=== PATIENT | male | born 1945 | race Caucasian/White ===

== ENCOUNTER 2020-05-13 14:38 | Observation (INO) | payer MEDICARE, OTHER ==
[~2020-05-13] VITALS: Ht 172.7 cm; Wt 105.3 kg
[2020-05-13] MEDS ORDERED: MINIPRESS1 M1 PO (14:52)
[2020-05-13] MEDS ORDERED: PHENOBARBITAL97.2 M1 PO (14:52)
[2020-05-13] MEDS ORDERED: PHENOBARBITAL32.4 M1 PO (14:53)
[2020-05-13] MEDS ORDERED: KEPPRA1000 MG PO (14:53)
[2020-05-13] MEDS ORDERED: ONE-DAILY MULT1 EAC1 PO (14:54)
[2020-05-13] MEDS ORDERED: VITAMIN C500 M7 PO (14:54)
[2020-05-13] MEDS ORDERED: CHOLECALCIFEROL1 GM PO (14:54)
[2020-05-13 15:54] LABS: MEAN CELL VOLUME 92 fl (78-100); MEAN CORPUSCULAR HEMOGLOBIN 31 pg (27-31); MEAN CORPUSCULAR HGB CONC 33 g/dL (33-37); MEAN PLATELET VOLUME 9.2 fl (7.4-10.4); PLATELET COUNT 327 K/mm3 (130-400); RED BLOOD COUNT 3.59 M/mm3 (4.20-5.60); RED CELL DISTRIBUTION WIDTH 13.4 % (11.5-14.5); WHITE BLOOD COUNT 5.5 K/mm3 (4.8-10.8)
[2020-05-13 16:05] LABS: ALBUMIN 3.4 g/dL (3.4-4.8)
[2020-05-13 16:06] LABS: POTASSIUM 4.3 mmol/L (3.5-5.1)
[2020-05-13 16:07] LABS: CALCIUM 9.2 mg/dL (8.3-10.5)
[2020-05-13 16:08] LABS: TOTAL PROTEIN 6.7 g/dL (6.2-8.1)
[2020-05-13 16:10] LABS: TOTAL BILIRUBIN 0.4 mg/dL (0.2-1.2)
[2020-05-13 16:17] LABS: LYMPHOCYTE 14 % (20-51); MONOCYTE 16 % (3-10)
[2020-05-13 16:18] LABS: NEUTROPHILS 66 % (42-75)
[2020-05-13 18:57] VITALS: BP 165/108
[2020-05-13 22:14] VITALS: BP 143/85
[2020-05-14 00:49] LABS: URINE APPEARANCE CLEAR; URINE BILIRUBIN NEGATIVE (NEGATIVE); URINE BLOOD TRACE (NEGATIVE); URINE COLOR YELLOW; URINE GLUCOSE NEGATIVE (NEGATIVE); URINE KETONE NEGATIVE (NEGATIVE); URINE LEUKOCYTE ESTERASE NEGATIVE (NEGATIVE); URINE NITRATE NEGATIVE (NEGATIVE); URINE PROTEIN(semi-quant) NEGATIVE (NEGATIVE); URINE UROBILINOGEN NORMAL (NORMAL)
[2020-05-14 00:50] LABS: URINE WBC 0-1 /hpf (0-3)
[2020-05-14 01:23] VITALS: BP 113/73
[2020-05-14 05:56] VITALS: BP 112/72
[2020-05-14 06:20] LABS: HEMATOCRIT 32.6 % (42.0-52.0); HEMOGLOBIN 10.6 g/dL (13.5-18.0); MEAN CELL VOLUME 93 fl (78-100); MEAN CORPUSCULAR HEMOGLOBIN 30 pg (27-31); MEAN CORPUSCULAR HGB CONC 33 g/dL (33-37); MEAN PLATELET VOLUME 9.2 fl (7.4-10.4); PLATELET COUNT 329 K/mm3 (130-400); RED CELL DISTRIBUTION WIDTH 13.6 % (11.5-14.5); WHITE BLOOD COUNT 5.3 K/mm3 (4.8-10.8)
[2020-05-14 06:27] LABS: POTASSIUM 4.3 mmol/L (3.5-5.1)
[2020-05-14 06:28] LABS: CALCIUM 8.7 mg/dL (8.3-10.5)
[2020-05-14 06:42] LABS: LYMPHOCYTE 17 % (20-51); MONOCYTE 13 % (3-10); NEUTROPHILS 70 % (42-75)
[2020-05-14 09:25] VITALS: BP 128/77
[2020-05-15 03:34] LABS: LEVETIRACETAM (KEPPRA) 45 ug/mL (5-45)
== END 2020-05-14 10:20 | disposition other institution (70) ==
LOC: ED 14:38 → MED/SURG 17:54
PROVIDERS: ADMIT Physician Assistant
DX: G43.909 Migraine, unspecified, not intractable, without status migrainosus (principal); U07.1 COVID-19; J44.9 Chronic obstructive pulmonary disease, unspecified; I10 Essential (primary) hypertension
CPT/HCPCS: G0378; J1650

== ENCOUNTER 2020-05-14 09:33 | Inpatient (IN) | payer MEDICARE, OTHER ==
[~2020-05-14] VITALS: Ht 172.7 cm; Wt 105.3 kg
[~2020-05-14 09:33] MED LIST: CHOLECALCIFEROL1 GM PO; KEPPRA1000 MG PO; MINIPRESS1 M1 PO; ONE-DAILY MULT1 EAC1 PO; PHENOBARBITAL32.4 M1 PO; PHENOBARBITAL97.2 M1 PO; VITAMIN C500 M7 PO
[2020-05-14 10:26] VITALS: BP 128/77
[2020-05-14 11:43] VITALS: BP 128/77
[2020-05-14 11:45] VITALS: BP 128/77
[2020-05-14 13:41] VITALS: BP 110/72
--- NOTE | 2020-05-14 15:55 | NUR ---
Pt resting in chair. Cont noc ox reading 88% on RA, consistently. Sats have been in the low 90s with vitals. Placed pt on 2L via NC. Cont noc ox machine continued to read 88%. Oxygen increased to 3L. O2 reading up to 89%. On different pulse ox machine pt reading 97% on 3L. O2 sat now reading 94% on cont noc ox machine. Decreased oxygen to 1L. Will continue to montior.
[2020-05-14 17:11] VITALS: BP 124/78
--- NOTE | 2020-05-14 17:40 | NUR ---
Pt sitting up in chair, just finished 100% of his dinner. Pt more oriented at this time than he has been throughout rest of shift. Pt able to state name, year, month, location and president. Pt denies pain or discomfort at this time. Chair alarm on and call light within reach.
--- NOTE | 2020-05-14 19:10 | NUR ---
Report given to PHILOMENA Graves.
[2020-05-14 21:06] VITALS: BP 147/94
[2020-05-15 01:45] VITALS: BP 124/68
[2020-05-15 05:52] VITALS: BP 100/53
[2020-05-15 07:20] LABS: HEMATOCRIT 33.2 % (42.0-52.0); HEMOGLOBIN 10.6 g/dL (13.5-18.0); MEAN CELL VOLUME 94 fl (78-100); MEAN CORPUSCULAR HEMOGLOBIN 30 pg (27-31); MEAN CORPUSCULAR HGB CONC 32 g/dL (33-37); MEAN PLATELET VOLUME 9.2 fl (7.4-10.4); PLATELET COUNT 339 K/mm3 (130-400); RED BLOOD COUNT 3.53 M/mm3 (4.20-5.60); RED CELL DISTRIBUTION WIDTH 14.1 % (11.5-14.5); WHITE BLOOD COUNT 5.3 K/mm3 (4.8-10.8)
[2020-05-15 07:32] LABS: ALBUMIN 3.1 g/dL (3.4-4.8); POTASSIUM 4.3 mmol/L (3.5-5.1)
[2020-05-15 07:33] LABS: CALCIUM 8.7 mg/dL (8.3-10.5)
[2020-05-15 07:34] LABS: TOTAL PROTEIN 6.5 g/dL (6.2-8.1)
[2020-05-15 07:36] LABS: TOTAL BILIRUBIN 0.4 mg/dL (0.2-1.2)
[2020-05-15 07:39] LABS: LYMPHOCYTE 18 % (20-51); MONOCYTE 10 % (3-10); NEUTROPHILS 70 % (42-75); POLYCHROMASIA 1+
[2020-05-15 09:58] VITALS: BP 134/77
--- NOTE | 2020-05-15 13:20 | NUR ---
Notifed by primary nurse and provider that pt will need O2 at discharge. Went in to meet with pt regarding [facility]. Pt stated that he already had O2 setup at home. Called pt's , Sofi, to confirm. Sofi stated that pt was setup with oxygen from [facility] after his recent discharge. He was supposed to be on 3L. Sofi states that pt's O2 sats were around 96% so they took it off him during the day and that pt was only wearing it at night. Asked about Home Health and Sofi states that they were offered it when pt was d/c'd from [place] but they declined because they "didn't want all that COVID" coming into their home. Offered it again after his discharged this time and she stated "it would depend" on her husbands condition but that she did not think they would be interested at this time. Will update proivder and continue to follow for discharge needs.
[2020-05-15 13:58] VITALS: BP 119/73
[2020-05-15 16:56] VITALS: BP 141/77
--- NOTE | 2020-05-15 20:30 | NUR ---
Patient awake watching TV. Denies pain. Alert and oriented x 4. Pleasant. HS meds reviewed and given. Neuros WNL. Avendano care provided. Snack of sabas given. Encouraged ambulation this HS and to call if would like a walk in hallway.
[2020-05-15 21:49] VITALS: BP 138/87
[2020-05-16 02:00] VITALS: BP 126/80
--- NOTE | 2020-05-16 02:41 | NUR ---
Patient has been resting with eyes closed. Noc ox intact.
--- NOTE | 2020-05-16 05:28 | NUR ---
Awakened for neuro checks. Denies pain or needs. Neuros WNL. Returns to resting with eyes closed.
[2020-05-16 05:58] VITALS: BP 114/73
--- NOTE | 2020-05-16 06:05 | NUR ---
Patients sao2 on room air once back from the bathroom reading 85%. Denies shortness of breath. O2 sat now 89% on 2lpnc.
--- NOTE | 2020-05-16 06:27 | NUR ---
02 SAT 89% 2LPNC AND INCREASED TO 2.5 L AND SATS 90% AT THIS TIME.
[2020-05-16 07:32] LABS: HEMATOCRIT 34.3 % (42.0-52.0); HEMOGLOBIN 10.9 g/dL (13.5-18.0); MEAN CELL VOLUME 95 fl (78-100); MEAN CORPUSCULAR HEMOGLOBIN 30 pg (27-31); MEAN CORPUSCULAR HGB CONC 32 g/dL (33-37); MEAN PLATELET VOLUME 9.3 fl (7.4-10.4); PLATELET COUNT 310 K/mm3 (130-400); RED BLOOD COUNT 3.62 M/mm3 (4.20-5.60); RED CELL DISTRIBUTION WIDTH 14.1 % (11.5-14.5); WHITE BLOOD COUNT 4.8 K/mm3 (4.8-10.8)
[2020-05-16 07:39] LABS: LYMPHOCYTE 17 % (20-51); MONOCYTE 17 % (3-10); NEUTROPHILS 63 % (42-75)
[2020-05-16 07:42] LABS: ALBUMIN 3.2 g/dL (3.4-4.8)
[2020-05-16 07:43] LABS: POTASSIUM 4.3 mmol/L (3.5-5.1)
[2020-05-16 07:44] LABS: CALCIUM 8.6 mg/dL (8.3-10.5)
[2020-05-16 07:45] LABS: TOTAL PROTEIN 6.7 g/dL (6.2-8.1)
[2020-05-16 07:47] LABS: TOTAL BILIRUBIN 0.3 mg/dL (0.2-1.2)
[2020-05-16] MEDS ORDERED: VIMPAT200 MG PO (09:17)
[2020-05-16 10:20] VITALS: BP 118/71
--- NOTE | 2020-05-16 12:50 | NUR ---
Patient has been excorted to [facility] with all of belongings. VO called to Cindy bryant, Laury, for Vimpat 200mg BID x 10 days.
== END 2020-05-16 11:13 | disposition home or self-care (01) | DRG 101 ==
LOC: MED/SURG 09:33
PROVIDERS: ADMIT Physician Assistant
DX: G40.909 Epilepsy, unspecified, not intractable, without status epilepticus (principal); J44.9 Chronic obstructive pulmonary disease, unspecified; I10 Essential (primary) hypertension; R09.02 Hypoxemia; Z86.16 Personal history of COVID-19
CPT/HCPCS: C9113; C9254; J1650

== ENCOUNTER 2021-01-01 09:00 | Emergency (ER) | payer MEDICARE, OTHER ==
[~2021-01-01] VITALS: Ht 177.8 cm; Wt 105.9 kg
[~2021-01-01 09:00] MED LIST changes: +VIMPAT200 MG PO
[2021-01-01 12:07] LABS: HEMATOCRIT 37.3 % (42.0-52.0); HEMOGLOBIN 12.5 g/dL (13.5-18.0); MEAN CELL VOLUME 95 fl (78-100); MEAN CORPUSCULAR HEMOGLOBIN 32 pg (27-31); MEAN CORPUSCULAR HGB CONC 34 g/dL (33-37); MEAN PLATELET VOLUME 9.4 fl (7.4-10.4); PLATELET COUNT 182 K/mm3 (130-400); RED BLOOD COUNT 3.92 M/mm3 (4.20-5.60); WHITE BLOOD COUNT 11.4 K/mm3 (4.8-10.8)
[2021-01-01 12:11] LABS: ALBUMIN 3.9 g/dL (3.4-4.8); POTASSIUM 4.3 mmol/L (3.5-5.1)
[2021-01-01 12:13] LABS: CALCIUM 9.7 mg/dL (8.3-10.5)
[2021-01-01 12:14] LABS: TOTAL PROTEIN 7.2 g/dL (6.2-8.1)
[2021-01-01 12:16] LABS: TOTAL BILIRUBIN 0.4 mg/dL (0.2-1.2)
[2021-01-01 12:28] LABS: URINE APPEARANCE HAZY; URINE BILIRUBIN NEGATIVE (NEGATIVE); URINE BLOOD NEGATIVE (NEGATIVE); URINE COLOR YELLOW; URINE GLUCOSE NEGATIVE (NEGATIVE); URINE KETONE NEGATIVE (NEGATIVE); URINE LEUKOCYTE ESTERASE 2+ (NEGATIVE); URINE MUCUS PRESENT (NOT PRESENT); URINE NITRATE NEGATIVE (NEGATIVE); URINE PROTEIN(semi-quant) TRACE mg/dL (NEGATIVE); URINE UROBILINOGEN NORMAL (NORMAL)
[2021-01-01 12:42] LABS: LYMPHOCYTE 7 % (20-51); MONOCYTE 11 % (3-10); NEUTROPHILS 82 % (42-75)
[2021-01-01 14:00] VITALS: BP 176/84
== END 2021-01-01 14:00 | disposition short-term general hospital (02) ==
LOC: ED 09:00
PROVIDERS: Nurse Practitioner
DX: S72.002A Fracture of unspecified part of neck of left femur, initial encounter for closed fracture (principal); Z86.16 Personal history of COVID-19; W01.0XXA Fall on same level from slipping, tripping and stumbling without subsequent striking against object, initial encounter; Y92.480 Sidewalk as the place of occurrence of the external cause
CPT/HCPCS: J2270; J2405

== ENCOUNTER 2021-01-04 19:49 | Inpatient (IN) | payer MEDICARE, OTHER ==
[~2021-01-04] VITALS: Ht 172.7 cm; Wt 104.4 kg
[2021-01-05 12:15] VITALS: BP 148/86
--- NOTE | 2021-01-05 12:15 | NUR ---
REPORT RECEIVED FROM RYAN ALMENDAREZ AT [facility]. PATIENT ADMIT TO ROOM [address] [facility] 6Scan TRANSPORT [employer]. VSS ON RA. PATIENT ALERT AND ORIENTED X4. PLEASENT AND COOPERATIVE. 1:1 ASSIT FROM WC TO BED WITH MINIMAL ASSIST. WEIGHT BEARING TOLERATED WITH WALKER. ASSITED IN TO GOWN. HOMA BUCIO ASSESSED. PATIENT DENIES PAIN OR DISCOMFORT AT THIS TIME. DRESSING TO LEFT HIP CLEAN, DRY AND INTACT. LAST BM ON 01-05-2021. ORIENTED TO ROOM AND CALL LIGHT. PRESENT AT BEDSIDE. PATIENT PERSONAL BELONGINGS SENT WITH . CALL LIGHT WITHIN REACH. AWAITING ORDERS FROM [place].
[2021-01-05 17:17] VITALS: BP 118/82
[2021-01-05] MEDS ORDERED: ASPIRIN E.C. 8181 MG PO (17:55)
[2021-01-05] MEDS ORDERED: NATURAL IRON65 MG PO (17:56)
[2021-01-05] MEDS ORDERED: PHENOBARBITAL32.4 M1 PO (17:58)
[2021-01-05] MEDS ORDERED: PHENOBARBITAL97.2 M1 PO (17:59)
[2021-01-05] MEDS ORDERED: TRAMADOL 50 MG TAB PO (18:01)
[2021-01-05] MEDS ORDERED: TYLENOL 325MG325 MG PO (18:03)
[2021-01-05] MEDS ORDERED: NAPROXEN250 M2 PO (18:04)
[2021-01-05 18:30] VITALS: BP 118/82
--- NOTE | 2021-01-05 19:00 | NUR ---
Report received from Camilo LAMAR. Patient resting in bed. Denies pain or needs.
--- NOTE | 2021-01-06 06:00 | NUR ---
Patient awake watching TV. Reports he slept well. Denies needs.
[2021-01-06 06:15] VITALS: BP 122/75
--- NOTE | 2021-01-06 07:00 | NUR ---
Report recieved from PHILOMENA Rainey.
[2021-01-06 07:05] LABS: BASO # 0.01 (0.02-0.10); EOS # 0.62 (0.04-0.40); EOS % 9.8 % (0.0-4.0); HEMATOCRIT 34.7 % (42.0-52.0); HEMOGLOBIN 11.7 g/dL (13.5-18.0); MEAN CELL VOLUME 96 fl (78-100); MEAN CORPUSCULAR HEMOGLOBIN 32 pg (27-31); MEAN CORPUSCULAR HGB CONC 34 g/dL (33-37); MEAN PLATELET VOLUME 9.8 fl (7.4-10.4); MONO # 0.69 (0.20-0.80); NEU # 4.07 (1.40-6.50); PLATELET COUNT 189 K/mm3 (130-400); RED BLOOD COUNT 3.63 M/mm3 (4.20-5.60); RED CELL DISTRIBUTION WIDTH 13.9 % (11.5-14.5); WHITE BLOOD COUNT 6.3 K/mm3 (4.8-10.8)
[2021-01-06 07:33] LABS: POTASSIUM 4.4 mmol/L (3.5-5.1)
[2021-01-06 07:34] LABS: ALBUMIN 3.6 g/dL (3.4-4.8)
[2021-01-06 07:35] LABS: CALCIUM 9.5 mg/dL (8.3-10.5)
[2021-01-06 07:37] LABS: TOTAL PROTEIN 6.9 g/dL (6.2-8.1)
[2021-01-06 07:38] LABS: TOTAL BILIRUBIN 0.4 mg/dL (0.2-1.2)
[2021-01-06 17:58] VITALS: BP 145/77
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
[2021-01-07 06:16] VITALS: BP 132/63
--- NOTE | 2021-01-07 07:05 | NUR ---
REPORT RECEIVED FROM NANCY LAMAR.
--- NOTE | 2021-01-07 12:40 | NUR ---
SPEAKS POSITIVELY OF HIS PROGRESS WITH THERAPY TODAY; PROUD TO HAVE WALKED TO THE DEPARTMENT AND BACK TO ROOM. EXPRESSES DESIRE TO WALK PERIODICALLY THROUGH DAY TO STAY LIMBER. ADVISE PATIENT THIS CAN BE ACCOMODATED; JUST LET STAFF KNOW BY USING CALL LIGHT. OVERALL, PATIENT HAPPY WITH POST SURGICAL COURSE THUS FAR.
[2021-01-07 17:26] VITALS: BP 129/81
--- NOTE | 2021-01-07 18:57 | NUR ---
REPORT PROVIDED TO NANCY LAMAR.
--- NOTE | 2021-01-07 20:10 | NUR ---
Report received from Carissa QUACH. Patient rests in bed watching TV. A/O x4. Rates pain 1/10 to LLE. Requests 1 Tylenol with HS medications. Dressing to L Hip CDI. Assessment completed. Denies wants or needs at this time.
[2021-01-08 05:24] VITALS: BP 119/65
--- NOTE | 2021-01-08 06:55 | NUR ---
Report to Peyton QUACH.
--- NOTE | 2021-01-08 08:33 | NUR ---
Patient sitting in chair eating breakfast. A&Ox4. No c/o pain or discomfort. Reports he slept really well last night. Chair in locked position. Call light within reach.
--- NOTE | 2021-01-08 13:34 | NUR ---
This nurse called to schedule F/U appointment with Dr. Paredes in 10-14 day. Unable to schedule at this time. Call [phone] on Thursday 01/11 schedule F/U apt with Dr. Paredes's nurse. She schedules his post-op F/U appointments.
[2021-01-08 14:11] VITALS: BP 125/76
--- NOTE | 2021-01-08 19:00 | NUR ---
Report received from Abigail Curiel RN. Pt. is sitting up in lounge chair, with foot rest elevated and bilateral braces are in place. Pt.'s gauze dressing is clean, dry and intact and is held in place with a Tegaderm. Pt. is talkative and pleasant with assessment. Pt. denies discomfort at this time. Pt. reports he was diagnosed with Covid-19 spring. Respiratory hygiene was reviewed with Pt. and Pt. was given an [employer] spirometer. IS use and instruction reviewed with Pt. Pt. reached 2000 platform 1/5 times. Pt. has personal items within reach. Room orientation and safety measures reviewed with Pt.
[2021-01-09 05:47] VITALS: BP 129/76
--- NOTE | 2021-01-09 07:00 | NUR ---
Report recieved from PHILOMENA Arndt. Pt resting in recliner when entering the room. Denies pain. A&Ox4. Pt ambulated throughout the halls x1 assist with walker and gait belt with no concerns.
[2021-01-09 18:15] VITALS: BP 150/78
--- NOTE | 2021-01-09 18:26 | NUR ---
Pt is sitting in recliner watching the news. Pt denies pain or any concerns at this time. Will continue to monitor.
--- NOTE | 2021-01-10 00:03 | NUR ---
Pt sleeping in bed on rounds. Earlier this evening the patient has denied discomfort when asked. He amb. in halls earlier this evening with assist x1, using gait belt and walker, full weight-bearing to LLE. Amb. approx. 1000 to 1200 ft. Gris. to L hip incision CD&I. Call light in reach. Juan Carlos Morales LPN
[2021-01-10 06:20] VITALS: BP 127/77
--- NOTE | 2021-01-10 07:00 | NUR ---
Report recieved from PHILOMENA Gonzalez. Pt watching TV in bed. Pt denies pain or concerns at this time.
--- NOTE | 2021-01-10 07:12 | NUR ---
Pt rested well during this night. Daughter sleeping in recliner. Call light in reach. Report given to oncoming shift nurseEly. Juan Carlos Morales LPN
--- NOTE | 2021-01-10 07:19 | NUR ---
Pt awake in bed and watching TV. He denies discomfort. Report given to oncoming shift nurseHayley. Juan Carlos Morales LPN
[2021-01-10 17:48] VITALS: BP 151/82
--- NOTE | 2021-01-10 18:58 | NUR ---
Report given to WILLARD Meza.
--- NOTE | 2021-01-10 19:50 | NUR ---
Report received from Camilo/Ely QUACH. Patient rests in recliner with legs elevated. Braces in place to BLE. A/O x4. Denies pain. Dressing to L hip CDI. Assessment completed. HS snack given. Denies wants or needs at this tiem.
--- NOTE | 2021-01-10 21:54 | NUR ---
Ambulated in black with FIBROUS PLASTERER. SBA with walker. Steady gait, tolerated well. Assisted to bed.
--- NOTE | 2021-01-11 02:00 | NUR ---
Resting quietly. Calls to have urinal emptied PRN. Denies pain.
[2021-01-11 05:49] VITALS: BP 115/68
--- NOTE | 2021-01-11 06:25 | NUR ---
Rested well all night. AM medications taken. Up to recliner with assist of ASSEMBLER FLUORESCENT LIGHTS per request.
--- NOTE | 2021-01-11 07:02 | NUR ---
Report to Bernice QUACH.
--- NOTE | 2021-01-11 07:30 | NUR ---
Report received from WILLARD Meza. Pt up in recliner. Denies pain or discomfort at this time. Pt reports that he did his home exercises a lot this weekend. Call light in reach. Chair alarm on.
--- NOTE | 2021-01-11 11:06 | NUR ---
Spoke with Dr Parry Deister's nurse. She said that if pt is still in [facility] 2 weeks post-op, that pt does not need to f/u in clinic. We can get xray here and cloud it to them for review. Ordered Gentry dawkins, 2 view xray for Monday, 01/15. Please call Brinda at [phone], to let her know when it has been uploaded or with any questions.
--- NOTE | 2021-01-11 14:42 | NUR ---
Received D/C information from [facility]. States that a follow up is due 10-14 days post d/c. Called Dr. Paredes's nurse left voice message to return my phone call for scheduling. Spoke with Bernice QUACH here at [place]. She advised that xray were to be taken here on Monday and clouded to Dr. Paredes. Hoping that Dr. Paredes will give orders to remove betty.
[2021-01-11 18:05] VITALS: BP 134/79
--- NOTE | 2021-01-11 19:00 | NUR ---
Report received from Peyton QUACH.
--- NOTE | 2021-01-11 20:45 | NUR ---
Patient sitting up in recliner watching TV. Denies pain. HS med reviewed and given. Alert and oriented x4. GCA with walker and gaitbelt to ambulate to bed. Gait slow with limp LLE. Rests self back in bed. Left hip dressing CDI. Some bruising surrounding dressing.
--- NOTE | 2021-01-12 05:12 | NUR ---
Patient has been resting with eyes closed in between calling for urinal to be emptied this noc.
[2021-01-12 05:58] VITALS: BP 112/65
--- NOTE | 2021-01-12 07:08 | NUR ---
REPORT RECEIVED FROM KATALINA QUACH.
--- NOTE | 2021-01-12 08:55 | NUR ---
SITTING IN CHAIR WITH LE ELEVATED. USES INCENTIVE SPIROMETER CORRECTLY. RAISES IT TO 2000, BUT REPORTS HIS BEST IS 2500. DRESSING REMAINS CLEAN AND INTACT TO LT HIP; ECCHYMOSIS AND SLIGHT EDEMA NOTED AROUND DRESSING. WEARS BRACES TO BILAT FEET. FEET ARE SLIGHTLY PUFFY. DOES NOT BELIEVE HE NEEDS TO WEAR MARTELL HOSE DUE TO TAKING LOVENOX.
--- NOTE | 2021-01-12 13:31 | NUR ---
Called Brinda at Dr. Paredes's office. left a voice message asking if we could have orders for xrays to be done on ? Awaiting her response.
[2021-01-12 17:21] VITALS: BP 128/78
--- NOTE | 2021-01-12 18:51 | NUR ---
REPORT PROVIDED TO NANCY LAMAR.
--- NOTE | 2021-01-12 20:00 | NUR ---
Report received from Carissa QUACH. Patient sitting up in recliner watching TV. A/O x4. Denies pain. Dressing to L hip incision CDI. Assessment completed. Denies questions, wants or needs. States worked on car transfer today and that went well.
--- NOTE | 2021-01-12 20:42 | NUR ---
Ambulated inside perimeter of hospital with VICE PRESIDENT SALES. Gait steady with gaitbelt and walker. Tolerated well. VICE PRESIDENT SALES in to assist with HS cares.
[2021-01-13 05:57] VITALS: BP 113/72
--- NOTE | 2021-01-13 06:22 | NUR ---
Rested well through the night. AM medication taken. Denies pain or need for an analgesic.
--- NOTE | 2021-01-13 06:56 | NUR ---
Report to Bernice QUACH.
--- NOTE | 2021-01-13 07:15 | NUR ---
Report received from WILLARD Meza. Pt sitting up in recliner. Denies pain or discomfort at this time. Pt pleasant and talkative. Call light in reach. Chair alarm on.
--- NOTE | 2021-01-13 18:10 | NUR ---
Report received from Bernice QUACH. Patient sitting up in recliner. Scheduled PM medications taken at this time. A/O x4. Denies pain or needs. States had a good day with theraphy today. Eating and drinking well. SBA with walker and ambualates frequently with staff.
[2021-01-13 18:13] VITALS: BP 116/68
--- NOTE | 2021-01-13 23:59 | NUR ---
Sleeping, no signs of pain or distress. Calls to have urinal emptied PRN.
[2021-01-14 05:50] VITALS: BP 117/72
--- NOTE | 2021-01-14 07:04 | NUR ---
Report to Peyton QUACH.
--- NOTE | 2021-01-14 09:04 | NUR ---
Patient resting in chair. Ate breakfast. A&Ox4, no c/o pain or discomfort. Reports he slept well. Eager to work with PT today. Chair in locked position. Call light within reach.
--- NOTE | 2021-01-14 10:51 | NUR ---
Tucker is ready to go home tomorrow. He has his 4 wheeled walker, He will go to outpatient therapy upon discharge. will transport to home on Monday. 01/14/21
--- NOTE | 2021-01-14 16:32 | NUR ---
Called Lalitha at Dr. Paredes's office notifying them that the xrays were clouded to them . Looking for a follow up appointment time for his next visit.
[2021-01-14 18:18] VITALS: BP 131/71
--- NOTE | 2021-01-14 19:04 | NUR ---
Report received from Peyton QUACH. Patient sitting up in recliner with braces on BLE. Denies pain. Oriented x4. States he had a good day today, "walked outside with theraphy. Awaiting on answer back from Dr. Paredes about Xray done today. Assessment completed. Dressing to L hip CDI. Denies wants or needs.
--- NOTE | 2021-01-15 00:25 | NUR ---
Resting with eyes closed. No signs of pain or distress. Calls PRN to have urinal emptied. Bed alarm on. Call light in reach.
[2021-01-15 05:45] VITALS: BP 125/65
--- NOTE | 2021-01-15 07:03 | NUR ---
Report to Peyton QUACH.
--- NOTE | 2021-01-15 08:50 | NUR ---
Patient resting in chair. Prior to ambulating from bed to w/c assisted with MAINE rosales. ZULEYKA Do at bedside. Dressing removed. betty removed. Steri strips applied to incision on left hip. Edges well approximated. CDI. No dressing applied. Patient tolerated procedure well. A&ox4, no c/o pain or discomfort. Eager to return home today. ZULEYKA Do reviewed discharge plan with patient. Answered all questions and concerns. Patient established with outpatient PT/OT. Chair in locked position. Call light within reach.
--- NOTE | 2021-01-15 10:40 | NUR ---
Patient discharged home. Ambulated with walker accompanied by patient's spouse. Discharge instructions reviewed with patient. All questions and concerns addressed. All personal belongings sent with patient.
== END 2021-01-15 10:40 | disposition home or self-care (01) | DRG 561 ==
LOC: MED/SURG 19:49
PROVIDERS: ADMIT Nurse Practitioner Family
DX: S72.002D Fracture of unspecified part of neck of left femur, subsequent encounter for closed fracture with routine healing (principal); I10 Essential (primary) hypertension; G47.33 Obstructive sleep apnea (adult) (pediatric); M21.379 Foot drop, unspecified foot; G40.909 Epilepsy, unspecified, not intractable, without status epilepticus; R53.81 Other malaise; W19.XXXD Unspecified fall, subsequent encounter; Z99.81 Dependence on supplemental oxygen; Z79.82 Long term (current) use of aspirin
CPT/HCPCS: J1650

== ENCOUNTER 2021-01-19 08:10 | Outpatient (RCR) | payer MEDICARE, OTHER ==
[~2021-01-19 08:10] MED LIST changes: +ASPIRIN E.C. 8181 MG PO; +NAPROXEN250 M2 PO; +NATURAL IRON65 MG PO; +TRAMADOL 50 MG TAB PO; +TYLENOL 325MG325 MG PO
== END 2021-02-11 17:00 ==
LOC: PT 08:10
DX: Z47.32 Aftercare following explantation of hip joint prosthesis (principal)

== ENCOUNTER → 2021-02-08 | Outpatient (CLI) | payer MEDICARE, OTHER | LOC: RAD 09:05 | DX: S72.002D Fracture of unspecified part of neck of left femur, subsequent encounter for closed fracture with routine healing (principal); M16.12 Unilateral primary osteoarthritis, left hip; Z98.890 Other specified postprocedural states ==

== ENCOUNTER 2022-12-30 12:18 | Emergency (ER) | payer MEDICARE, OTHER ==
[~2022-12-30] VITALS: Ht 172.7 cm; Wt 104.4 kg
[2022-12-30] MEDS ORDERED: LEVETIRACETAM500 M2 PO (12:47)
[2022-12-30] MEDS ORDERED: LEVETIRACETAM750 MG PO (12:47)
[2022-12-30] MEDS ORDERED: CEPHALEXIN500 M2 PO (17:03)
[2022-12-30 17:25] VITALS: BP 143/78
== END 2022-12-30 17:35 | disposition home or self-care (01) ==
LOC: ED 12:18
DX: S92.512B Displaced fracture of proximal phalanx of left lesser toe(s), initial encounter for open fracture (principal); Z23 Encounter for immunization; W18.30XA Fall on same level, unspecified, initial encounter; Y92.009 Unspecified place in unspecified non-institutional (private) residence as the place of occurrence of the external cause
CPT/HCPCS: 90715